=== PATIENT | female | born 1990 | race Native Hawaiian/Other Pacific Islander ===

== ENCOUNTER 2021-10-12 09:36 | Outpatient (CLI) | payer MEDICAID ==
[~2021-10-12] VITALS: Ht 152.4 cm; Wt 88.6 kg
[~2021-10-12 09:36] MED LIST: NO HOME MEDICATIONS
[2021-10-12 09:50] VITALS: BP 137/88; PULSE 93; TEMP 97.4
[2021-10-12] MEDS ORDERED: GLUCOPHAGE XR750 MG PO (09:53)
[2021-10-12] MEDS ORDERED: TRANDATE 100MG100 MG PO (09:53)
[2021-10-12] MEDS ORDERED: ADALAT CC60 MG PO (09:54)
[2021-10-12] MEDS ORDERED: PRENATAL FORMU1 EAC3 PO (09:54)
--- NOTE | 2021-10-12 10:02 | NUR ---
0931 PATIENT HERE FOR BLOOD PRESSURE CHECK AND FHT MONITOR PER DR PAULSON. EFM ON FHT 140 BABY VERY ACTIVE. NO CONTRACTIONS FELT BY PATIENT OR ON MONITOR AT THIS TIME. ASSESSMENT COMPLETED. BP 137/88 DR PAULSON CALLED AND UPDATED AT THIS TIME. NO NEW ORDERS AT THIS TIME
[2021-10-12 10:15] VITALS: BP 132/85; PULSE 84
[2021-10-12 10:30] VITALS: BP 133/86; PULSE 81
[2021-10-12 10:45] VITALS: BP 130/85; PULSE 78
[2021-10-12 11:08] VITALS: BP 137/89; PULSE 78
--- NOTE | 2021-10-12 11:25 | NUR ---
1108 BP137/89 MONITOR STRIP EVALUATED BY DR PAULSON. ORDERS TO SEND PATIENT HOME TO RETURN SATURDAY MORNING AT 0900 FOR NST AND BLOOD PRESSURE CHECK. ALL DISCHARGE INSTRUCTIONS GIVEN TO PATIENT WITH VERBAL UNDERSTANDING. ORDERS TO RETURN TO HOSPITAL AT [facility]NAY TIME SHE FEELS DECREASE MOVEMENT, HEADACHE THAT DOESNT GO AWAY, CALL WITH QUESTIONS OR CONCERNS
== END 2021-10-12 11:08 | disposition home or self-care (01) ==
LOC: LDRO 09:36
DX: O16.3 Unspecified maternal hypertension, third trimester (principal); Z3A.35 35 weeks gestation of pregnancy

== ENCOUNTER 2021-10-16 10:25 | Outpatient (CLI) | payer MEDICAID ==
[~2021-10-16] VITALS: Ht 152.4 cm; Wt 88.5 kg
[~2021-10-16 10:25] MED LIST changes: +ADALAT CC60 MG PO; +GLUCOPHAGE XR750 MG PO; +PRENATAL FORMU1 EAC3 PO; +TRANDATE 100MG100 MG PO
--- NOTE | 2021-10-16 10:40 | NUR ---
pt ambulatory onto unit with FOB. FHR monitor/TOCO applied. Vital signs WNL. pt denies any vaginal bleeding, regular contractions, leaking of fluid, or decreased movement. Nst discussed with pt. pt verbalizes understanding. call light within reach.
[2021-10-16 11:00] VITALS: BP 137/94; PULSE 97; TEMP 97.5
[2021-10-16 11:15] VITALS: BP 134/85; PULSE 93
== END 2021-10-16 11:25 | disposition home or self-care (01) ==
LOC: LDRO 10:25
DX: Z34.93 Encounter for supervision of normal pregnancy, unspecified, third trimester (principal); Z3A.36 36 weeks gestation of pregnancy

== ENCOUNTER 2021-10-19 10:48 | Inpatient (IN) | payer MEDICAID ==
[2021-10-19] VITALS (16 sets, daily range): BP systolic 91–141; BP diastolic 61–102; PULSE 67–107; TEMP 97–98.9
[~2021-10-19] VITALS: Ht 152.4 cm; Wt 89.0 kg
--- NOTE | 2021-10-19 11:00 | NUR ---
Pt arrived on unit ambulatory from clinic after BPP 0/8 for unscheduled urgent . Pt denies any contractions, leaking of fluid or vaginal bleeding and reports "lots" of movement while walking up to the unit. EFM and toco monitors started. Dr. Zavala on the unit. VORB for pre-op orders received. FHR tracing and vital reviewed. Plan of care reviewed with pt and significant other at the bedside.
[2021-10-19 11:30] LABS: BASO # 0.1 K/mm3 (0.0-0.2); BASO % 0.8 % (0.0-2.0); EOS # 0.1 K/mm3 (0.0-0.7); EOS % 0.7 % (0.0-4.0); GRAN # 7.5 K/mm3 (1.4-6.5); GRAN % 70.5 % (42.2-75.2); HEMATOCRIT 39.8 % (37.0-47.0); HEMOGLOBIN 13.3 g/dl (12.5-16.0); LYMPH # 2.3 K/mm3 (1.2-3.4); LYMPH % 21.6 % (20.0-51.0); MEAN CELL VOLUME 79 fl (80.0-100.0); MEAN CORPUSCULAR HEMOGLOBIN 26 pg (27-31); MEAN CORPUSCULAR HGB CONC 33 g/dl (33.0-37.0); MONO # 0.6 K/mm3 (0.1-0.6); MONO % 5.9 % (1.7-9.3); PLATELET COUNT 378 K/mm3 (130-400); RED BLOOD COUNT 5.03 M/mm3 (4.10-5.30); REDCELL DISTRIBUTION WIDTH-CV 14.4 % (11.5-14.5)
[2021-10-19 11:48] LABS: ALBUMIN 2.1 gm/dL (3.5-5.0); BILIRUBIN,TOTAL 0.4 mg/dL (0.2-1.2); CALCIUM 8.1 mg/dL (8.4-10.2); CREATININE, serum 0.67 mg/dL (0.57-1.11); POTASSIUM 4.3 mmol/L (3.5-4.5)
[2021-10-20] VITALS (9 sets, daily range): BP systolic 129–176; BP diastolic 77–106; PULSE 74–99; TEMP 97.7–98.5
--- NOTE | 2021-10-20 09:07 | NUR ---
Initial visit; Patient thanked Guide Plant for offering congratulations and God's blessings for the of her daughter. Guide Plant thanked patient for choosing [facility].
--- NOTE | 2021-10-20 21:00 | NUR ---
BP 166/104 after taking showerm removing surgical dressing . Pain medication given. Will recheck BP after pt has rested.
[2021-10-21 01:00] VITALS: BP 144/96; PULSE 93; TEMP 98.1
--- NOTE | 2021-10-21 02:25 | NUR ---
0125 ASKED THIS RN ABOUT SIGNS OF DEPRESSION. IS CONCERNED THAT MOM DOES NOT WANT TO HOLD BABY OR VISIT BABY IN NURSERY. THIS RN EXPLAINED THE DIFFERENCE BETWEEN PPD AND BABY BLUES. EXPLAINED THAT HORMONES ARE CHANGING, MOM IS RECOVERING, AND THE BABY BEING IN THE NURSERY ON IV FLUIDS COULD BE OVERWHELMING MOM. THIS RN TOLD JANET THAT SHE WOULD BRING PAMPHLETS TO HIM AND IT WAS GREAT HE EXPRESSED CONCERN. ZOYA SANTILLAN RN, NOTIFIED OF LEIDY CONCERNS. WILL CONTINUE TO MONITOR.
[2021-10-21 08:15] VITALS: BP 153/91; PULSE 80; TEMP 97.9
[2021-10-21 12:26] LABS: HEMOGLOBIN 11.5 g/dl (12.5-16.0); MEAN CELL VOLUME 82 fl (80.0-100.0); MEAN CORPUSCULAR HEMOGLOBIN 27 pg (27-31); MEAN CORPUSCULAR HGB CONC 33 g/dl (33.0-37.0); MEAN PLATELET VOLUME 9.1 fl (7.4-10.4); PLATELET COUNT 328 K/mm3 (130-400); RED BLOOD COUNT 4.24 M/mm3 (4.10-5.30); REDCELL DISTRIBUTION WIDTH-CV 15.1 % (11.5-14.5)
[2021-10-21 12:30] LABS: HEMATOCRIT 34.7 % (37.0-47.0)
[2021-10-21 12:45] LABS: ALBUMIN 1.8 gm/dL (3.5-5.0); BILIRUBIN,TOTAL 0.1 mg/dL (0.2-1.2); CALCIUM 8.3 mg/dL (8.4-10.2); CREATININE, serum 0.66 mg/dL (0.57-1.11); TOTAL PROTEIN 5.5 gm/dL (6.2-8.1)
[2021-10-21 13:00] VITALS: BP 145/96; PULSE 94; TEMP 98
[2021-10-21 17:45] VITALS: BP 125/86; PULSE 94; TEMP 97.8
--- NOTE | 2021-10-21 19:00 | NUR ---
Pt and spouse setting up breastpump equipment. Assistance offered, declines at this time. Pt and verbalize willingness to call if they need help.
[2021-10-21 19:25] VITALS: BP 135/83; PULSE 103; TEMP 98.9
--- NOTE | 2021-10-22 05:15 | NUR ---
pt reports rested well. Cheerful, asks how baby did through the night.
[2021-10-22 08:00] VITALS: BP 127/88; PULSE 91; TEMP 97.9
[2021-10-22] MEDS ORDERED: TRANDATE 100MG100 MG PO (09:43)
[2021-10-22] MEDS ORDERED: PROCARDIA XL90 MG PO (09:43)
[2021-10-22] MEDS ORDERED: GLUCOPHAGE500 MG/TAB PO (09:44)
[2021-10-22] MEDS ORDERED: IBU800 M1 PO (09:45)
[2021-10-22] MEDS ORDERED: PERCOCET 325 MG1 TA2 PO (09:45)
== END 2021-10-22 14:05 | disposition home or self-care (01) | DRG 788 ==
LOC: LDR 10:48 → OB 10:48
PROVIDERS: Obstetrics & Gynecology; ADMIT Obstetrics & Gynecology
PROC: 10D00Z1 Extraction of Products of Conception, Low, Open Approach (ICD-10-PCS; principal; 2021-10-19)
DX: O13.4 Gestational [pregnancy-induced] hypertension without significant proteinuria, complicating childbirth (principal); O24.12 Pre-existing type 2 diabetes mellitus, in childbirth; Z3A.36 36 weeks gestation of pregnancy; Z79.84 Long term (current) use of oral hypoglycemic drugs
CPT/HCPCS: J0171; J0690; J1100; J1885; J1940; J2370; J2405; J2590; J7120